=== PATIENT | male | born 1930 | race Caucasian/White ===

== ENCOUNTER 2018-03-09 12:18 | Observation (INO) ==
--- NOTE | 2018-03-09 12:33 | Emergency Department Note ---
Disposition Clinical Impression: History of Parkinson's disease Altered mental status Qualifiers: Altered mental status type: somnolence Qualified Code(s): R40.0 - Somnolence Dementia Qualifiers: Dementia type: Parkinson's disease Dementia behavioral disturbance: without behavioral disturbance Qualified Code(s): G20 - Parkinson's disease Disposition: Admitted As Inpatient Condition: Good Time of Disposition: 18:04 Altered Mental Status HPI - General Chief Complaint: ED Altered Mental Status Stated Complaint: Altered Mental Status Time Seen by Provider: 03/09/18 12:22 Source: EMS, other (limited report from ECF) Mode of arrival: EMS Limitations: altered mental status, physical limitation Nursing Notes Reviewed: Yes Vital Signs Reviewed: Yes - History of Present Illness HPI Narrative: This is an 88 year-old male with history of HTN, HLD, CAD/CABG, and Parkinson's disease, who was sent from his ECF for AMS/confusion. Patient has had similar presentations to another hospital in the past; his family reportedly asked him to be sent to [facility] this time, as visits to the other hospital didn't uncover the cause. Code status is DNR-CCA. MD complaint: altered mental status, confusion, decreased responsiveness Onset (ago): unknown Context: history of similar presentation - Related Data Home Medications Medication Instructions Recorded Confirmed Acetaminophen [Tylenol] 650 mg PO Q4H PRN 03/09/18 03/09/18 Aspirin [Lo-Dose Aspirin EC] 81 mg PO DAILY 03/09/18 03/09/18 Carbidopa/Levodopa 25/100 [Sinemet 1 tab PO TID 03/09/18 03/09/18 25/100] Cholecalciferol (D-3) [Vitamin D] 2,000 unit PO DAILY 03/09/18 03/09/18 Diclofenac Sodium [Voltaren] 1 appl TP Q12H PRN 03/09/18 03/09/18 Folic Acid 1 mg PO DAILY 03/09/18 03/09/18 Ipratropium/Albuterol Neb [Duoneb] 3 ml IH Q6HR PRN 03/09/18 03/09/18 Lactulose [Enulose] 20 gm PO DAILY PRN 03/09/18 03/09/18 Memantine HCl 10 mg PO BID 03/09/18 03/09/18 Metoprolol Succinate [Toprol Xl] 12.5 mg PO DAILY 03/09/18 03/09/18 Nitroglycerin [Nitrostat] 0.4 mg SL Q5M PRN 03/09/18 03/09/18 Omeprazole [PriLOSEC] 20 mg PO DAILY 03/09/18 03/09/18 Polyethylene Glycol 3350 [MiraLAX 1 scoop PO DAILY 03/09/18 03/09/18 Powder Bulk 17.9 Oz] Sertraline [Zoloft] 75 mg PO DAILY 03/09/18 03/09/18 Tamsulosin [Flomax] 0.4 mg PO DAILY 03/09/18 03/09/18 Allergies Allergy/AdvReac Type Severity Reaction Status Date / Time No Known Allergies Allergy Verified 03/09/18 12:29 Limitations: ROS unobtainable due to patients medical condition Physical Exam - General Limitations: altered mental status, age (dementia) General appearance: in no apparent distress, lethargic - Head Head exam: atraumatic, normocephalic - Eye Eye exam: Present: normal appearance, PERRL, EOMI - ENT ENT exam: mucous membranes dry - Neck Neck exam: Present: normal inspection - Respiratory Respiratory exam: Present: normal lung sounds bilaterally. Absent: respiratory distress, wheezes - Cardiovascular Cardiovascular exam: Present: regular rate, normal rhythm, normal heart sounds - Abdominal Exam Abdominal exam: Present: soft, Non-Tender. Absent: distention - Extremities Exam Extremities exam: Present: normal inspection. Absent: calf tenderness - Neurological Exam Neurological exam: Present: other (somnolent, nonverbal, but is following commands). Absent: motor sensory deficit Course - Reevaluation(s) Reevaluation #1: Patient is resting comfortably. Patient's nurse has spoken with the facility, and they state that "he's been this way for weeks." We will attempt to get in touch with patient's family to discuss. Time: 16:29 Reevaluation #2: Discussed patient with his daughter Evelin. She says that patient has been more sleepy and has had greatly decreased appetite for the past 2 weeks. She would like him admitted for further evaluation. She understands this may end up as a brief/obs admit. Time: 17:10 - Consultations Consultation #1: Discussed case with Dr. Bello. Patient accepted for admission. Time: 18:03 Vital Signs Temperature 97 F L 03/09/18 12:21 Pulse Rate 59 03/09/18 12:21 Respiratory Rate 20 03/09/18 12:21 Blood Pressure 185/103 03/09/18 12:21 O2 Sat by Pulse Oximetry 96 03/09/18 12:21 Temperature 97.9 F 03/10/18 22:30 Pulse Rate 57 03/10/18 22:30 Respiratory Rate 16 03/10/18 22:30 Blood Pressure 142/76 03/10/18 22:30 O2 Sat by Pulse Oximetry 97 03/10/18 22:30 Oxygen Delivery Oxygen Delivery Room Air Altered Mental Status - Lab Data Lab results reviewed: Yes I reviewed the patient's lab results. Result diagrams: 03/10/18 05:37 03/10/18 05:37 Lab Results 03/09/18 03/09/18 03/09/18 Range/Units 13:07 13:07 13:07 WBC 7.3 (4.3-11.1) K/mcL RBC 4.41 (4.19-5.50) M/mcL Hgb 12.9 (12.9-16.9) g/dL Hct 40.3 (37.5-50.1) % MCV 91.4 (83.0-100.0) fL MCH 29.3 (28.0-33.3) pg MCHC 32.0 (31.6-35.5) g/dL RDW 16.0 H (11.5-14.5) % Plt Count 208 (140-400) K/mcL MPV 11.3 (9.4-12.4) fL Immature Gran % 0.7 (0-4) % Seg Neutrophils % 76.5 % Lymphocytes % 13.3 % Monocytes % 7.0 % Eosinophils % 2.0 % Basophils % 0.5 % Neutrophils # 5.6 (1.6-8.9) K/mcL Lymphocytes # 1.0 (0.6-4.6) K/mcL Monocytes # 0.5 (0.0-1.3) K/mcL Eosinophils # 0.2 (0.0-0.6) K/mcL Basophils # 0.0 (0.0-0.2) K/mcL PT 12.2 H (9.4-12.1) Seconds INR 1.1 APTT 25.1 L (26.0-36.0) Seconds Sodium Cancelled Potassium Cancelled Chloride Cancelled Carbon Dioxide Cancelled BUN Cancelled Creatinine Cancelled Est GFR ( Amer) Cancelled Est GFR (Non-Af Amer) Cancelled BUN/Creatinine Ratio Cancelled Glucose Cancelled Calculated Osmolality Cancelled Calcium Cancelled Total Bilirubin Cancelled Direct Bilirubin Cancelled Indirect Bilirubin Cancelled AST Cancelled ALT Cancelled Alkaline Phosphatase Cancelled Troponin I < 0.03 (< 0.04) ng/mL B-Natriuretic Peptide (Less than 100) pg/mL Serum Total Protein Cancelled Albumin Cancelled Globulin Cancelled Albumin/Globulin Ratio Cancelled TSH Cancelled Urine Color (Yellow) Urine Clarity (Clear) Urine pH (5.0-8.0) pH Units Ur Specific Anthony (1.010-1.025) Urine Protein (Neg-Trace) mg/dL Urine Glucose (UA) (Normal) mg/dL Urine Ketones (Negative) mg/dL Urine Blood (Negative) Urine Nitrite (Negative) Urine Bilirubin (Negative) Urine Urobilinogen (Normal) mg/dL Ur Leukocyte Esterase (Negative) Urine Microscopic RBC (0-3) per hpf Urine Microscopic WBC (0-3) per hpf Ur Squamous Epith Cells (None-Few) per lpf Urine Bacteria (None-Few) per hpf Hyaline Casts Urine Mucus (Few) Ur Culture Indicated? (NO) Specimen Rejected 03/09/18 03/09/18 03/09/18 Range/Units 13:07 13:15 13:48 WBC (4.3-11.1) K/mcL RBC (4.19-5.50) M/mcL Hgb (12.9-16.9) g/dL Hct (37.5-50.1) % MCV (83.0-100.0) fL MCH (28.0-33.3) pg MCHC (31.6-35.5) g/dL RDW (11.5-14.5) % Plt Count (140-400) K/mcL MPV (9.4-12.4) fL Immature Gran % (0-4) % Seg Neutrophils % % Lymphocytes % % Monocytes % % Eosinophils % % Basophils % % Neutrophils # (1.6-8.9) K/mcL Lymphocytes # (0.6-4.6) K/mcL Monocytes # (0.0-1.3) K/mcL Eosinophils # (0.0-0.6) K/mcL Basophils # (0.0-0.2) K/mcL PT (9.4-12.1) Seconds INR APTT (26.0-36.0) Seconds Sodium Potassium Chloride Carbon Dioxide BUN Creatinine Est GFR ( Amer) Est GFR (Non-Af Amer) BUN/Creatinine Ratio Glucose Calculated Osmolality Calcium Total Bilirubin Direct Bilirubin Indirect Bilirubin AST ALT Alkaline Phosphatase Troponin I (< 0.04) ng/mL B-Natriuretic Peptide 100 H (Less than 100) pg/mL Serum Total Protein Albumin Globulin Albumin/Globulin Ratio TSH Urine Color Yellow (Yellow) Urine Clarity Clear (Clear) Urine pH 6.0 (5.0-8.0) pH Units Ur Specific Anthony 1.024 (1.010-1.025) Urine Protein Negative (Neg-Trace) mg/dL Urine Glucose (UA) Normal (Normal) mg/dL Urine Ketones Negative (Negative) mg/dL Urine Blood Negative (Negative) Urine Nitrite Negative (Negative) Urine Bilirubin Negative (Negative) Urine Urobilinogen Normal (Normal) mg/dL Ur Leukocyte Esterase Small H (Negative) Urine Microscopic RBC 0-3 (0-3) per hpf Urine Microscopic WBC 15-30 H (0-3) per hpf Ur Squamous Epith Cells Many H (None-Few) per lpf Urine Bacteria None Seen (None-Few) per hpf Hyaline Casts Test Not Performed Urine Mucus Moderate H (Few) Ur Culture Indicated? NO. A (NO) Specimen Rejected Hemolyzed 03/09/18 Range/Units 14:12 WBC (4.3-11.1) K/mcL RBC (4.19-5.50) M/mcL Hgb (12.9-16.9) g/dL Hct (37.5-50.1) % MCV (83.0-100.0) fL MCH (28.0-33.3) pg MCHC (31.6-35.5) g/dL RDW (11.5-14.5) % Plt Count (140-400) K/mcL MPV (9.4-12.4) fL Immature Gran % (0-4) % Seg Neutrophils % % Lymphocytes % % Monocytes % % Eosinophils % % Basophils % % Neutrophils # (1.6-8.9) K/mcL Lymphocytes # (0.6-4.6) K/mcL Monocytes # (0.0-1.3) K/mcL Eosinophils # (0.0-0.6) K/mcL Basophils # (0.0-0.2) K/mcL PT (9.4-12.1) Seconds INR APTT (26.0-36.0) Seconds Sodium 144 Potassium 4.1 Chloride 110 H Carbon Dioxide 27 BUN 29 H Creatinine 1.11 Est GFR ( Amer) > 60 Est GFR (Non-Af Amer) > 60 BUN/Creatinine Ratio 26 Glucose 90 Calculated Osmolality 303 H Calcium 9.2 Total Bilirubin 0.6 Direct Bilirubin 0.2 Indirect Bilirubin 0.4 AST 13 ALT 3 L Alkaline Phosphatase 77 Troponin I (< 0.04) ng/mL B-Natriuretic Peptide (Less than 100) pg/mL Serum Total Protein 6.7 Albumin 4.0 Globulin 2.7 Albumin/Globulin Ratio 1.5 TSH 2.682 Urine Color (Yellow) Urine Clarity (Clear) Urine pH (5.0-8.0) pH Units Ur Specific Anthony (1.010-1.025) Urine Protein (Neg-Trace) mg/dL Urine Glucose (UA) (Normal) mg/dL Urine Ketones (Negative) mg/dL Urine Blood (Negative) Urine Nitrite (Negative) Urine Bilirubin (Negative) Urine Urobilinogen (Normal) mg/dL Ur Leukocyte Esterase (Negative) Urine Microscopic RBC (0-3) per hpf Urine Microscopic WBC (0-3) per hpf Ur Squamous Epith Cells (None-Few) per lpf Urine Bacteria (None-Few) per hpf Hyaline Casts Urine Mucus (Few) Ur Culture Indicated? (NO) Specimen Rejected - Radiology Data Radiology results reviewed: Yes I reviewed the patient's radiology results. CT/CT head/brain wo con IMPRESSION: No acute intracranial abnormality. Diffuse atrophic changes with findings suggesting chronic microvascular ischemia XR/XR chest 1V portable IMPRESSION: No acute process. - EKG Data EKG attestation: Yes I reviewed and interpreted this EKG. EKG shows normal: sinus rhythm, intervals, QRS complexes, ST-T waves Rate: bradycardia When compared to previous EKG there are: previous EKG unavailable Interpretation: other (no significant abnormalities) TPA Checklist - LKW: 3-4.5 hrs Add. Warnings/Precautions Patient/family understanding: The patient/family members have been counseled and understood the risk, benefit , and alternatives of treatment.
[2018-03-09 13:18] LABS: Basophils % 0.5 %; Eosinophils # 0.2 K/mcL (0.0-0.6); Hematocrit 40.3 % (37.5-50.1); Hemoglobin 12.9 g/dL (12.9-16.9); Immature Granulocytes % 0.7 % (0-4); Lymphocytes % 13.3 %; Mean Corpuscular Hemoglobin 29.3 pg (28.0-33.3); Mean Corpuscular Volume 91.4 fL (83.0-100.0); Mean Platelet Volume 11.3 fL (9.4-12.4); Monocytes # 0.5 K/mcL (0.0-1.3); Neutrophils # 5.6 K/mcL (1.6-8.9); Platelet Count 208 K/mcL (140-400); Red Blood Count 4.41 M/mcL (4.19-5.50); Segmented Neutrophils % 76.5 %
[2018-03-09 13:26] LABS: Bilirubin,Urine Negative (Negative); Blood,Urine Negative (Negative); Clarity,Urine Clear (Clear); Color,Urine Yellow (Yellow); Glucose,Urine (UA) Normal (Normal); Ketones,Urine Negative (Negative); Leukocyte Esterase,Urine Small (Negative); Nitrite,Urine Negative (Negative); Protein,Urine Negative (Neg-Trace); Specific Gravity,Urine 1.024 (1.010-1.025); Urobilinogen,Urine Normal (Normal)
[2018-03-09 13:28] LABS: INR 1.1; Prothrombin Time 12.2 Seconds (9.4-12.1)
[2018-03-09 13:28] LABS: Bacteria,Urine None Seen per hpf (None-Few); RBC,Urine 0-3 per hpf (0-3); Squamous Epithelial Cell,Urine Many per lpf (None-Few); WBC,Urine 15-30 per hpf (0-3)
[2018-03-09 13:30] LABS: Activated Partial Thrombo Time 25.1 Seconds (26.0-36.0)
[2018-03-09 13:37] LABS: Mucus,Urine Moderate (Few)
[2018-03-09 14:49] LABS: Alanine Aminotransferase 3 Units/L (7-52); Albumin/Globulin Ratio 1.5 (1.1-2.2); Alkaline Phosphatase 77 Units/L (34-104); Aspartate Amino Transferase 13 Units/L (13-39); BUN/Creatinine Ratio 26 (6-26); Bilirubin,Direct 0.2 mg/dL (0.0-0.2); Bilirubin,Indirect 0.4 mg/dL (0.0-1.2); Bilirubin,Total 0.6 mg/dL (0.3-1.0); Blood Urea Nitrogen 29 mg/dL (8-23); Calcium 9.2 mg/dL (8.6-10.3); Carbon Dioxide 27 mEq/L (23-29); Chloride 110 mEq/L (98-107); Globulin 2.7 g/dL (2.4-3.5); Glucose 90 mg/dL (70-105); Osmolality,Calculated 303 (280-300); Potassium 4.1 mEq/L (3.5-5.1); Sodium 144 mEq/L (136-145); Total Protein 6.7 g/dL (6.4-8.9); eGFR For African Americans > 60 (> 60); eGFR For Non-African Americans > 60 (> 60)
[2018-03-09 15:01] LABS: Thyroid Stimulating Hormone 2.682 mcIU/mL (0.340-5.600)
[2018-03-09] MEDS ORDERED: 0.9 % Sodium Chloride 500 ML IVC ONE (15:35)
--- NOTE | 2018-03-09 18:20 | Electrocardiograph Report ---
[facility] Test Date: 2018-03-09 Pat Name: Luis Feldman Department: 103 Room: Gender: M Service Technician: : [id number] Requested By: Dao Ryan Order Number: [id number] Reading MD: Shaka Martins Measurements Intervals [place] Rate: 59 P: 8 WA: 169 QRS: -5 QRSD: 99 T: 46 QT: 443 QTc: 443 Interpretive Statements SINUS BRADYCARDIA Electronically Signed On 03-09-2018 18:18:36 EDT by Shaka Martins
[2018-03-09] MEDS ORDERED: Naloxone 0.4 MG/ML INJ IVP PRN (20:39)
[2018-03-09] MEDS ORDERED: Acetaminophen 325 MG TABLET PO PRN (20:39)
--- NOTE | 2018-03-09 21:09 | Internal Med History&Physical ---
<Chun Hein - Last Filed: 03/09/18 22:02> Date of Encounter: 03/09/18 Time of Encounter: 20:00 Internal Medicine - H&P: HPI Chief complaint: Confusion Admitted From: Emergency Dept Plans for Post Hospital Care: Transfer Snf Facility History of present illness: Mr. 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 Patient has had similar presentations to [facility], but was unable to determine cause of mental status changes. Family requested patient to be sent to [place] at this time. Patient is unable to speak or communicate. Family not at bedside. Unable to obtain further history at this time. Past Med Surg Social Fam HX - Past Medical History Medical history: cirrhosis, COPD, coronary artery disease, dementia, GERD, hyperlipidemia, hypertension, peripheral artery disease Psychiatric history: anxiety, depression - Social History Smoking Status: Former smoker Smokeless Tobacco Status: No Alcohol use: heavy Drug use: none Internal Medicine - H&P: Meds Acetaminophen [Tylenol] 650 mg PO Q4H PRN 03/09/18 [History] Aspirin [Lo-Dose Aspirin EC] 81 mg PO DAILY 03/09/18 [History] Carbidopa/Levodopa 25/100 [Sinemet 25/100] 1 tab PO TID 03/09/18 [History] Cholecalciferol (D-3) [Vitamin D] 2,000 unit PO DAILY 03/09/18 [History] Diclofenac Sodium [Voltaren] 1 appl TP Q12H PRN 03/09/18 [History] Folic Acid 1 mg PO DAILY 03/09/18 [History] Ipratropium/Albuterol Neb [Duoneb] 3 ml IH Q6HR PRN 03/09/18 [History] Lactulose [Enulose] 20 gm PO DAILY PRN 03/09/18 [History] Memantine HCl 10 mg PO BID 03/09/18 [History] Metoprolol Succinate [Toprol Xl] 12.5 mg PO DAILY 03/09/18 [History] Nitroglycerin [Nitrostat] 0.4 mg SL Q5M PRN 03/09/18 [History] Omeprazole [PriLOSEC] 20 mg PO DAILY 03/09/18 [History] Polyethylene Glycol 3350 [MiraLAX Powder Bulk 17.9 Oz] 1 scoop PO DAILY [History] Sertraline [Zoloft] 75 mg PO DAILY 03/09/18 [History] Tamsulosin [Flomax] 0.4 mg PO DAILY 03/09/18 [History] 3 Allergy/AdvReac Type Severity Reaction Status Date / Time No Known Allergies Allergy Verified 03/09/18 12:29 ROS unobtainable: due to mental status All Systems PM: A 10-system review of systems was performed and is negative for pertinent findings except as documented above in the HPI. - Constitutional Vitals: Temp Pulse Resp BP Pulse Ox 97.7 F 61 14 189/90 98 03/09/18 20:00 03/09/18 20:00 03/09/18 20:00 03/09/18 20:00 03/09/18 20:00 Exam: non-verbal. unable to open his eyes on command, but squeezes my hand when asked. - Head Head exam: Present: atraumatic, normocephalic - Eye Eye exam: Present: conjuntiva pink, sclera anicteric - Neck Neck exam general surgery: Present: supple, trachea midline. Absent: lymphadenopathy - Respiratory Respiratory exam: Present: CTAB. Absent: accessory muscle use, rales, rhonchi, wheezes - Cardiovascular Cardiovascular exam: Present: RRR, +S1, +S2. Absent: diastolic murmur, gallop, rubs, systolic murmur - GI/Abdominal GI/Abdominal exam: Present: normal bowel sounds, soft, no peritoneal signs. Absent: distended, tenderness - Extremities Exam Extremities exam: Present: warm, radial pulses palpable and symmetrical. Absent : calf tenderness, cyanotic, pedal edema - Neurological Exam Neurological exam: Absent: reflexes normal Additional comments: unable to obtain - Skin Skin exam: Present: dry, intact Internal Med - H&P Results - Labs CBC & Chem 7: 03/09/18 13:07 03/09/18 14:12 - Assessment and plan (1) Acute encephalopathy Current Visit: Yes Status: Acute Assessment and plan: 88M was sent from his ECF for confusion. Unable to obtain further history at this time. Obtain medical records from [facility]. CXR and CT Head are unremarkable. Per ECF, patient has been on soft diet. Continue NPO to avoid aspiration for now. Start D5 1/2 NaCl at 50ml/hr. UA + leukocyte esterase, negative nitrites. UCx and BCx pending. No need for antibiotics for now. Physical exam demonstrated abdominal guarding. KUB ordered. Consider GI consult. Urine tox screen pending Hold PO medications. Hydralazine prn. Continue Duoneb. (2) History of Parkinson's disease Current Visit: Yes Status: Acute Assessment and plan: Patient on NPO. Hold PO meds for now. Continue to monitor mental status changes. (3) Dementia Current Visit: Yes Status: Acute Assessment and plan: Hold medications for now. Qualifiers: Dementia type: Parkinson's disease Dementia behavioral disturbance: without behavioral disturbance Qualified Code(s): G20 - Parkinson's disease; F02.80 - Dementia in other diseases classified elsewhere without behavioral disturbance (4) Abdominal pain Current Visit: Yes Status: Acute Assessment and plan: Physical exam demonstrated abdominal guarding with palpitation, bilaterally. KUB pending. Consider GI consult. Qualifiers: Qualified Code(s): R10.9 - Unspecified abdominal pain (5) DVT prophylaxis Current Visit: Yes Status: Acute Assessment and plan: SubQ heparin (6) Hypertension Current Visit: Yes Status: Acute Assessment and plan: Hold PO medications. Hydralazine prn. Continue to monitor vital signs. Qualifiers: Qualified Code(s): I10 - Essential (primary) hypertension - Time Spent With Patient Total time spent is greater than 50% in coordination of care (as documented) at patient's floor/unit and/or counseling patient: Greater than 35 minutes <Shady Schmidt P - Last Filed: 03/10/18 05:10> Date of Encounter: 03/09/18 Internal Medicine - H&P: HPI History of present illness: Mr. Feldman is a 88 year old male All Systems PM: A 10-system review of systems was performed and is negative for pertinent findings except as documented above in the HPI. - Constitutional Vitals: Temp Pulse Resp BP Pulse Ox 97.7 F 52 15 177/87 96 03/10/18 03:29 03/10/18 03:29 03/10/18 03:29 03/10/18 03:29 03/10/18 03:29 Internal Med - H&P Results - Labs CBC & Chem 7: 03/09/18 13:07 03/09/18 14:12 - Impressions ITS Impressions KUB X-Ray 03/09/18 21:11 IMPRESSION: Normal bowel gas pattern. D/ / Tommie Foster MD / Tommie Foster MD Interpreting Provider: Tommie Foster MD - Attending Attestation I saw and evaluated the patient, and performed my own physical examination on . I discussed the case with the resident, and I reviewed the resident's note and agree with findings and plan as documented. Briefly, patient admitted for AMS, particularly somnolence. This has been a subacute issue that was fully worked up at [facility] recently. However, daughter Evelin told ED physician that she brought patient here for a different workup. Patient is drowsy and not oriented on my exam. He responds to squeezing my fingers after multiple tries. He is easy to arouse, but goes back to bed. There are no focal neurological deficits. He has history of Parkinson's and dementia. We will hold sedating medications at this time. We will put on telemetry and monitor closely. Labwork only with mild dehydration; will hydrate gently for now with IVF. Will add antibiotic to cover possible UTI. CT head with diffuse atrophic changes, but nothing acute. We will monitor closely and consider further workup after obtaining and reviewing [facility] records in AM. - Assessment and plan (1) Dementia Current Visit: Yes Status: Acute Qualifiers: Dementia type: Parkinson's disease Dementia behavioral disturbance: without behavioral disturbance Qualified Code(s): G20 - Parkinson's disease; F02.80 - Dementia in other diseases classified elsewhere without behavioral disturbance (2) History of Parkinson's disease Current Visit: Yes Status: Acute (3) Acute encephalopathy Current Visit: Yes Status: Acute (4) DVT prophylaxis Current Visit: Yes Status: Acute (5) Abdominal pain Current Visit: Yes Status: Acute Qualifiers: Qualified Code(s): R10.9 - Unspecified abdominal pain (6) Hypertension Current Visit: Yes Status: Acute Qualifiers: Qualified Code(s): I10 - Essential (primary) hypertension - Time Spent With Patient Total time spent is greater than 50% in coordination of care (as documented) at patient's floor/unit and/or counseling patient:
[2018-03-09] MEDS ORDERED: Nitroglycerin 0.4 MG TAB.SUBL SL PRN (21:13)
[2018-03-09] MEDS ORDERED: Ipratropium/Albuterol Neb 3 ML IH PRN (21:14)
[2018-03-09] MEDS ORDERED: D5% in 0.45% NACL 1,000 ML IVC SCH (22:00)
[2018-03-09 22:01] LABS: Chol/HDL Ratio 5.8 (0-4.9); Magnesium 2.3 mg/dL (1.6-2.6); Phosphorous 2.3 mg/dL (2.7-4.5)
[2018-03-09] MEDS: *HR* Heparin 5,000 UNIT/ML VIAL SQ SCH (22:32)
[2018-03-09 23:21] LABS: Amphetamine Screen,Urine Negative ng/mL (Cutoff=1000); Barbiturate Screen,Urine Negative ng/mL (Cutoff=200); Benzodiazepines Screen,Urine Negative ng/mL (Cutoff=200); Cannabinoid Screen,Urine Negative ng/mL (Cutoff = 50); Cocaine Screen,Urine Negative ng/mL (Cutoff= 300); Opiate Screen,Urine Negative ng/mL (Cutoff=300); Phencyclidine Screen,Urine Negative ng/mL (Cutoff=25)
[2018-03-10] MEDS: cefTRIAXone 1,000 MG in Water for inj. (sterile) 20 ML 20 ML IVPB SCH (05:37)
[2018-03-10] MEDS: *HR* Heparin 5,000 UNIT/ML VIAL SQ SCH ×2 (05:38→17:04)
[2018-03-10 06:03] LABS: Basophils # 0.1 K/mcL (0.0-0.2); Basophils % 0.8 %; Eosinophils # 0.2 K/mcL (0.0-0.6); Eosinophils % 2.5 %; Hematocrit 39.9 % (37.5-50.1); Hemoglobin 12.9 g/dL (12.9-16.9); Immature Granulocytes % 0.5 % (0-4); Lymphocytes # 1.1 K/mcL (0.6-4.6); Lymphocytes % 17.6 %; Mean Corpuscular HGB Conc 32.3 g/dL (31.6-35.5); Mean Corpuscular Hemoglobin 29.5 pg (28.0-33.3); Mean Corpuscular Volume 91.3 fL (83.0-100.0); Mean Platelet Volume 11.3 fL (9.4-12.4); Monocytes # 0.5 K/mcL (0.0-1.3); Monocytes % 8.7 %; Neutrophils # 4.2 K/mcL (1.6-8.9); Platelet Count 203 K/mcL (140-400); Red Blood Count 4.37 M/mcL (4.19-5.50); Red Cell Distribution Width 15.9 % (11.5-14.5); Segmented Neutrophils % 69.9 %
[2018-03-10 06:16] LABS: BUN/Creatinine Ratio 26 (6-26); Blood Urea Nitrogen 24 mg/dL (8-23); Calcium 8.8 mg/dL (8.6-10.3); Carbon Dioxide 24 mEq/L (23-29); Chloride 110 mEq/L (98-107); Glucose 88 mg/dL (70-105); Osmolality,Calculated 297 (280-300); Potassium 3.9 mEq/L (3.5-5.1); Sodium 142 mEq/L (136-145); eGFR For African Americans > 60 (> 60); eGFR For Non-African Americans > 60 (> 60)
[2018-03-10] MEDS ORDERED: Aspirin Enteric Coated 81 MG Tablet PO SCH (09:00)
[2018-03-10] MEDS ORDERED: Metoprolol XL (24 HR) Succ 25 MG TAB.ER.24H PO SCH (09:00)
--- NOTE | 2018-03-10 14:45 | Internal Med Progress Note ---
Date of Encounter: 03/10/18 Time of Encounter: 14:42 - Assessment and plan (1) Acute encephalopathy Current Visit: Yes Status: Acute Assessment and plan: has known hx dementia and now with increased lethargy over the last 2 weeks. Etiology unknown at this time however suspect a component of this is progression of dementia. Head CT nonacute. Brain MRI pending. Supportive care for now. RN to complete bedside swallow eval and okay to resume home medications if passes otherwise will need to remain NPO with ST consult (2) Dementia Current Visit: Yes Status: Acute Assessment and plan: per hx. Baseline mentation confused but alert per family. Plan as noted above. Qualifiers: Dementia type: Parkinson's disease Dementia behavioral disturbance: without behavioral disturbance Qualified Code(s): G20 - Parkinson's disease; F02.80 - Dementia in other diseases classified elsewhere without behavioral disturbance (3) History of Parkinson's disease Current Visit: Yes Status: Acute Assessment and plan: per hx. Cont home medication regimen (4) Abdominal pain Current Visit: Yes Status: Acute Assessment and plan: Patient apparently demonstrated abdominal pain on exam in ED. No evidence of abdominal pain or discomfort all my exam. Patient denies abdominal pain. KUB unremarkable. No further workup indicated at this time Qualifiers: Qualified Code(s): R10.9 - Unspecified abdominal pain (5) Hypertension Current Visit: Yes Status: Acute Assessment and plan: per hx. Cont home BP medication. Qualifiers: Qualified Code(s): I10 - Essential (primary) hypertension (6) DVT prophylaxis Current Visit: Yes Status: Acute Assessment and plan: SubQ heparin - Time Spent With Patient Total time spent is greater than 50% in coordination of care (as documented) at patient's floor/unit and/or counseling patient: - Subjective Interval history: Seen and examined at bedside. Patient is new to me, information obtained mostly from chart review and daughters at bedside as patient is confused and unable to provide details. Daughters report patient has history of dementia and over the last 2 weeks have been more confused and nonresponsive. He was seen at a local hospital and no causes found he was discharged back to [facility]. Daughters report lethargy/drowsiness is becoming worse. Baseline he is confused but alert. On exam he will open eyes and follows some commands. Words are mumbled at times. Unable to provide details. - Constitutional Vitals: Temp Pulse Resp BP Pulse Ox 98.5 F 80 16 132/73 100 03/10/18 11:10 03/10/18 11:10 03/10/18 11:10 03/10/18 11:10 03/10/18 11:10 General appearance: Present: A&O X 1, no acute distress - Head Head exam: Present: atraumatic, normocephalic - Eye Eye exam: Present: PERRL, conjuntiva pink, sclera anicteric Pupils: Present: PERRL - Neck Neck exam general surgery: Present: supple, trachea midline. Absent: lymphadenopathy - Respiratory Respiratory exam: Present: CTAB. Absent: accessory muscle use, rales, rhonchi, wheezes - Cardiovascular Cardiovascular exam: Present: RRR, +S1, +S2. Absent: diastolic murmur, gallop, rubs, systolic murmur - GI/Abdominal GI/Abdominal exam: Present: normal bowel sounds, soft, no peritoneal signs. Absent: distended, tenderness - Extremities Exam Extremities exam: Present: warm, radial pulses palpable and symmetrical. Absent : calf tenderness, cyanotic, pedal edema - Neurological Exam Neurological exam: Present: CN II-XII intact, no focal deficits. Absent: pronater drift, facial droop, speech deficit - Skin Skin exam: Present: dry, intact Internal Medicine: Result - Labs CBC & Chem 7: 03/10/18 05:37 03/10/18 05:37 Labs: Short CBC 03/10/18 Range/Units 05:37 WBC 6.0 (4.3-11.1) K/mcL Hgb 12.9 (12.9-16.9) g/dL Hct 39.9 (37.5-50.1) % Plt Count 203 (140-400) K/mcL Neutrophils # 4.2 (1.6-8.9) K/mcL BMP 03/10/18 05:37 Sodium 142 Potassium 3.9 Chloride 110 H Carbon Dioxide 24 BUN 24 H Creatinine 0.92 Glucose 88 Calcium 8.8 - ABG Interpretation ABG results: PT/INR, D-dimer PT 12.2 Seconds (9.4-12.1) H 03/09/18 13:07 - Impressions Impressions KUB X-Ray 03/09/18 21:11 IMPRESSION: Normal bowel gas pattern. D/ / Tommie Foster MD / Tommie Foster MD Interpreting Provider: Tommie Foster MD Brain MRI 03/10/18 11:32 IMPRESSION: 1. No acute infarct or acute intracranial process identified. 2. Ovoid 1 cm lesion with a hemosiderin rim within the subcortical white matter of the right frontal lobe suggestive of a cavernous malformation. 3. Diffuse cerebral volume loss and chronic small vessel ischemic changes. D/ / Barney Salazar MD / Barney Salazar MD Interpreting Provider: Barney Salazar MD Consult Discharge Plan - Plan Referrals: Jak Bailey [Primary Care Provider] - Scott Maier [Family Provider] -
--- NOTE | 2018-03-10 14:56 | Event Note ---
Date of Encounter: 03/10/18 Time of Encounter: 14:55 A review by [facility] any member of utilization review committee has determined that status is to be changed observation using condition code 44. I Meaghan Calero am in agreement that the status is to be changed observation.
[2018-03-10] MEDS: Carbidopa/Levodopa 25/100 TABLET PO SCH ×2 (15:41→20:48)
[2018-03-11] MEDS: *HR* Heparin 5,000 UNIT/ML VIAL SQ SCH ×2 (05:30→17:57)
[2018-03-11] MEDS: Carbidopa/Levodopa 25/100 TABLET PO SCH ×2 (09:08→17:57)
[2018-03-11] MEDS: cefTRIAXone 1,000 MG in Water for inj. (sterile) 20 ML 20 ML IVPB SCH (09:18)
--- NOTE | 2018-03-11 13:15 | Discharge Summary ---
Date of Encounter: 03/11/18 Time of Encounter: 13:11 - Discharge Diagnosis (1) Acute encephalopathy Priority: Primary Status: Acute Assessment and Plan: has known hx dementia and now with increased lethargy over the last [address] non-acute. Brain MRI today for acute infarct. Abnormal UA but urine culture negative (received 2 doses IV ceftriaxone). Mentation improved to baseline without intervention. Alteration in mentation most likely secondary to dementia progression and he will likely wax and wane. Mentation at baseline at time of discharge. No further workup indicated at this time. (2) Dementia Priority: Primary Status: Acute Assessment and Plan: per hx. Returned to baseline mentation as noted above. Continue home [place]. Qualifiers: Dementia type: Parkinson's disease Dementia behavioral disturbance: without behavioral disturbance Qualified Code(s): G20 - Parkinson's disease; F02.80 - Dementia in other diseases classified elsewhere without behavioral disturbance (3) History of Parkinson's disease Priority: Primary Status: Acute Assessment and Plan: per hx. Cont home medication carbidopa/levodopa (4) Abdominal pain Priority: Primary Status: Resolved Assessment and Plan: Patient apparently demonstrated abdominal pain on exam in ED. No evidence of abdominal pain or discomfort on my exam. Patient denied abdominal pain. KUB unremarkable. No further workup indicated at this time Qualifiers: Qualified Code(s): R10.9 - Unspecified abdominal pain (5) Hypertension Priority: Primary Status: Acute Assessment and Plan: per hx. BP variable but acceptable given advanced age and multiple comorbidities. Continue home BP medication. BP can be monitored and medications titrated at [facility]CF Qualifiers: Qualified Code(s): I10 - Essential (primary) hypertension Hospital course: Please see assessment and plan for Hospital course Discharge discussed with: patient (Seen and examined at bedside. He is more awake and alert, speech is more clear. Son at bedside and says patient is back to baseline. He is alert to self only therefore unable to provide details. He will answer some yes/no questions or follow simple commands.) - Time Spent with Patient Total time spent providing and/or coordinating discharge services: - Discharge Medications Home Medications: Acetaminophen [Tylenol] 650 mg PO Q4H PRN 03/09/18 [History] Aspirin [Lo-Dose Aspirin EC] 81 mg PO DAILY 03/09/18 [History] Carbidopa/Levodopa 25/100 [Sinemet 25/100] 1 tab PO TID 03/09/18 [History] Cholecalciferol (D-3) [Vitamin D] 2,000 unit PO DAILY 03/09/18 [History] Diclofenac Sodium [Voltaren] 1 appl TP Q12H PRN 03/09/18 [History] Folic Acid 1 mg PO DAILY 03/09/18 [History] Ipratropium/Albuterol Neb [Duoneb] 3 ml IH Q6HR PRN 03/09/18 [History] Lactulose [Enulose] 20 gm PO DAILY PRN 03/09/18 [History] Memantine HCl 10 mg PO BID 03/09/18 [History] Metoprolol Succinate [Toprol Xl] 12.5 mg PO DAILY 03/09/18 [History] Nitroglycerin [Nitrostat] 0.4 mg SL Q5M PRN 03/09/18 [History] Omeprazole [PriLOSEC] 20 mg PO DAILY 03/09/18 [History] Polyethylene Glycol 3350 [MiraLAX Powder Bulk 17.9 Oz] 1 scoop PO DAILY [History] Sertraline [Zoloft] 75 mg PO DAILY 03/09/18 [History] Tamsulosin [Flomax] 0.4 mg PO DAILY 03/09/18 [History] Allergies/Adverse Reactions: 3 Allergy/AdvReac Type Severity Reaction Status Date / Time No Known Allergies Allergy Verified 03/09/18 12:29 Date of admission: 03/09/18 19:11 Primary care physician: Jak Bailey Consults: 03/10/18 08:48 Consult to [employer] [CONS] Routine Reason for SW Consult: patient bed hold at [facility] Discharging clinician: Meaghan Calero Anticipated date of discharge: 03/11/18 - Constitutional Vitals: Temp Pulse Resp BP Pulse Ox 97.9 F 76 16 101/62 96 03/11/18 10:53 03/11/18 10:53 03/11/18 10:53 03/11/18 10:53 03/11/18 10:53 General appearance: Present: A&O X 1, no acute distress - Head Head exam: Present: atraumatic, normocephalic - Eye Eye exam: Present: PERRL, conjuntiva pink, sclera anicteric Pupils: Present: PERRL - Neck Neck exam general surgery: Present: supple, trachea midline. Absent: lymphadenopathy - Respiratory Respiratory exam: Present: CTAB. Absent: accessory muscle use, rales, rhonchi, wheezes - Cardiovascular Cardiovascular exam: Present: RRR, +S1, +S2. Absent: diastolic murmur, gallop, rubs, systolic murmur - GI/Abdominal GI/Abdominal exam: Present: normal bowel sounds, soft, no peritoneal signs. Absent: distended, tenderness - Extremities Exam Extremities exam: Present: warm, radial pulses palpable and symmetrical. Absent : calf tenderness, cyanotic, pedal edema - Neurological Exam Neurological exam: Present: CN II-XII intact, no focal deficits. Absent: pronater drift, facial droop, speech deficit - Skin Skin exam: Present: dry, intact - Patient Status Disposition: Transfer SNF Condition: Fair Functional capacity at discharge: wheelchair bound Overall status at discharge: patient is back to baseline - Discharge Instructions Follow Up With: Jak Bailey [Primary Care Provider] - Scott Maier [Family Provider] - - Diet and Activity Activity: as per physical therapy, increase activity as tolerated Diet: other ([place] thick liquids and mechanically altered textures)
--- NOTE | 2018-03-11 13:26 | Physician Discharge Referral ---
ExtendedCare Referral Info Transfer To: ECF Provider in Charge: Meaghan Calero CNP Provider in Charge after Transfer: PCP Institutional Level of Care: Skilled - Diagnosis (1) Acute encephalopathy Status: Acute (2) Dementia Status: Acute (3) History of Parkinson's disease Status: Acute (4) Abdominal pain Status: Resolved (5) Hypertension Status: Acute - Transfer Medications Home Medications: Acetaminophen [Tylenol] 650 mg PO Q4H PRN 03/09/18 [History] Aspirin [Lo-Dose Aspirin EC] 81 mg PO DAILY 03/09/18 [History] Carbidopa/Levodopa 25/100 [Sinemet 25/100] 1 tab PO TID 03/09/18 [History] Cholecalciferol (D-3) [Vitamin D] 2,000 unit PO DAILY 03/09/18 [History] Diclofenac Sodium [Voltaren] 1 appl TP Q12H PRN 03/09/18 [History] Folic Acid 1 mg PO DAILY 03/09/18 [History] Ipratropium/Albuterol Neb [Duoneb] 3 ml IH Q6HR PRN 03/09/18 [History] Lactulose [Enulose] 20 gm PO DAILY PRN 03/09/18 [History] Memantine HCl 10 mg PO BID 03/09/18 [History] Metoprolol Succinate [Toprol Xl] 12.5 mg PO DAILY 03/09/18 [History] Nitroglycerin [Nitrostat] 0.4 mg SL Q5M PRN 03/09/18 [History] Omeprazole [PriLOSEC] 20 mg PO DAILY 03/09/18 [History] Polyethylene Glycol 3350 [MiraLAX Powder Bulk 17.9 Oz] 1 scoop PO DAILY [History] Sertraline [Zoloft] 75 mg PO DAILY 03/09/18 [History] Tamsulosin [Flomax] 0.4 mg PO DAILY 03/09/18 [History] Allergies/Adverse Reactions: 3 Allergy/AdvReac Type Severity Reaction Status Date / Time No Known Allergies Allergy Verified 03/09/18 12:29 - Respiratory Orders None Smoking Cessation: Smoking cessation has been advised. For more information, call the [employer] Tobacco Quit Line at 3-615-DSFH-NOW. - Advance Directives Code Status: DNR-Arrest - Mobility Orders Chair - Rehabiliation Orders Rehab Potential: Fair Rehab Orders: Evaluation for Physical Therapy, Evaluation for Occupational Therapy - Diet Orders Mechanical Soft (mech soft with nectar thickened liquids) CERTIFICATION: I certify that the transfer of the above named patient to an Extended Care Facility is necessary for the continuing treatment of the diagnosis listed. The above information is true and accurate reflection of patient's current condition. Confidential - Redisclosure prohibited without a patient's written consent.
== END 2018-03-11 20:00 ==
LOC: EMEROO 12:18 → 3BNU 12:18
PROVIDERS: ADMIT General Practice; ATTEND General Practice